=== PATIENT | female | born 1975 | race Two or more races ===

== ENCOUNTER 2019-08-23 19:04 | Emergency (ER) | payer SELFPAY ==
[~2019-08-23] VITALS: Ht 157.5 cm; Wt 108.9 kg
[2019-08-23 19:51] LABS: Urine Bacteria FEW /hpf (None Seen); Urine Blood Negative /uL (Negative); Urine Mucus FEW (None Seen); Urine Specific Gravity 1.017 (1.001-1.035); Urine WBC 4 /hpf (0 - 5)
[2019-08-23 19:55] LABS: Basophils # (auto) 0.1 10 ^3/uL (0-0.2); Basophils % (auto) 0.5 % (0.0-2.0); Monocytes # (auto) 0.6 10 ^3/uL (0-1.3); Neutrophils % (auto) 74.3 % (37.0-80.0)
[2019-08-23 19:56] LABS: Eosinophils # (auto) 0.4 10 ^3/uL (0-0.8); Hemoglobin 12.8 g/dL (12.2-16.2); Lymphocytes % (auto) 16.9 % (10.0-50.0); Mean Corpuscular Hemoglobin 26.2 pg (28.0-32.0); Mean Corpuscular Hgb Conc. 32.8 g/dL (32.0-36.0); Mean Corpuscular Volume 79.7 fL (80.0-100.0); Monocytes % (auto) 5.3 % (0.0-12.0); Neutrophils # (auto) 8.6 10 ^3/uL (1.6-8.6); Platelet Count (auto) 287 10^3/uL (140-450); Red Blood Cells 4.89 10^6/uL (4.0-5.20); Red Cell Distribution Width 17.8 % (11.8-14.3); White Blood Cell 11.6 10^3/uL (4.4-10.8)
[2019-08-23 20:11] LABS: Albumin 3.4 g/dL (3.4-5.0); BUN/Creatinine Ratio 19.7; Calcium 8.6 mg/dL (8.5-10.1)
[2019-08-23 20:14] LABS: Bilirubin, Total 0.6 mg/dL (0.2-1.0)
[2019-08-23 22:30] VITALS: BP 138/86
[2019-08-23] MEDS ORDERED: DONNATAL 5ml ORAL Elix (BELLADONNA ALK-PHENOBARB) PO ONE (22:30)
[2019-08-23] MEDS ORDERED: LIDOCAINE VISCOUS 2% 15ML UD PO ONE (22:30)
[2019-08-23] MEDS ORDERED: ALUM & MAG HYDROX-SIMETH LIQ(MAALOX) 30 ML PO ONE (22:30)
== END 2019-08-23 22:58 | disposition home or self-care (01) ==
LOC: ER 19:04
DX: K29.70 Gastritis, unspecified, without bleeding (principal); N39.0 Urinary tract infection, site not specified; Z98.51 Tubal ligation status; Z98.890 Other specified postprocedural states; Z98.84 Bariatric surgery status
CPT/HCPCS: 36415; 74176; 80053; 81001; 81025; 83690; 84484; 85025

== ENCOUNTER 2022-02-08 07:58 | Inpatient (IN) | payer MEDICAID, OTHER ==
[~2022-02-08] VITALS: Ht 157.5 cm; Wt 98.8 kg
[2022-02-08 08:50] LABS: Eosinophils # (auto) 0.3 10 ^3/uL (0-0.8); Hemoglobin 12.9 g/dL (12.2-16.2); Monocytes # (auto) 0.6 10 ^3/uL (0-1.3)
[2022-02-08 08:52] LABS: Basophils # (auto) 0.1 10 ^3/uL (0-0.2); Basophils % (auto) 0.7 % (0.0-2.0); Eosinophils % (auto) 2.6 % (0.0-7.0); Hematocrit 40.6 % (36.0-46.0); Lymphocytes # (auto) 2.4 10 ^3/uL (0.4-5.4); Lymphocytes % (auto) 20.2 % (10.0-50.0); Mean Corpuscular Hemoglobin 25.2 pg (28.0-32.0); Mean Corpuscular Hgb Conc. 31.9 g/dL (32.0-36.0); Monocytes % (auto) 5.4 % (0.0-12.0); Neutrophils # (auto) 8.5 10 ^3/uL (1.6-8.6); Neutrophils % (auto) 71.1 % (37.0-80.0); Nucleated Red Blood Cells % 0.1 %; Red Blood Cells 5.13 10^6/uL (4.0-5.20); Red Cell Distribution Width 16.6 % (11.8-14.3)
[2022-02-08] MEDS ORDERED: SODIUM CHLORIDE 0.9% 500 ML IV ONE (09:00)
[2022-02-08 09:06] LABS: Albumin 3.5 g/dL (3.4-5.0); Potassium 4.5 mmol/L (3.5-5.1)
[2022-02-08 09:09] LABS: BUN/Creatinine Ratio 36.2; Bilirubin, Total 0.5 mg/dL (0.2-1.0); Total Protein 7.4 g/dL (6.4-8.2)
[2022-02-08] MEDS ORDERED: KETOROLAC TROMETH 30 MG/ML 1ML VIAL IV ONE (10:00)
[2022-02-08] MEDS ORDERED: METOCLOPRAMIDE HCL 5MG/ml INJ 2ml VIAL IV ONE (10:00)
[2022-02-08] MEDS ORDERED: IOHEXOL 300 MG/ML 100ML BOTTLE IJ ONE ×2 (11:20→12:33)
[2022-02-08] MEDS ORDERED: metroNIDAZOLE 500MG/100ML 100 ML IV ONE (15:15)
[2022-02-08] MEDS ORDERED: cefTRIAXone 1GM/50ML D5W 50 ML IV ONE (15:15)
[2022-02-08 15:20] VITALS: BP 128/78
[2022-02-08 16:24] LABS: INR 0.97 (0.9-1.15); Partial Thromboplastin Time 25.4 sec (24.6-33.4)
[2022-02-08] MEDS ORDERED: D5W/SOD CHL 0.45%/KCL 20MEQ 1,000 ML IV SCH (16:30)
[2022-02-08 19:00] LABS: Urine Bacteria NONE SEEN /hpf (None Seen); Urine Blood 3+ /uL (Negative); Urine Mucus FEW (None Seen); Urine Specific Gravity 1.032 (1.001-1.035); Urine WBC 283 /hpf (0 - 5); Urine WBC Clumps PRESENT /hpf (None Seen)
[2022-02-08] MEDS ORDERED: NITROGLYCERIN 0.4 MG SL TAB SL PRN (19:45)
[2022-02-08] MEDS ORDERED: ONDANSETRON HCL 4 MG/2 ML VIAL IV PRN (19:45)
[2022-02-08] MEDS ORDERED: MORPHINE SULFATE INJ 2 MG/ml SYRG IV PRN ×2 (19:45)
[2022-02-08] MEDS ORDERED: DOCUSATE SOD 100 MG CAP PO PRN (19:45)
[2022-02-08] MEDS ORDERED: SODIUM CHLORIDE 0.9% 1,000 ML IV SCH (19:45)
[2022-02-08] MEDS ORDERED: PANTOPRAZOLE 40 MG/10 ML VIAL INJ IV SCH (22:00)
[2022-02-09] MEDS ORDERED: PIPERACILLIN-TAZOB 3.375GM 100 ML IV SCH
== END 2022-02-09 00:57 | disposition left against medical advice (07) | DRG 241 ==
LOC: ER 07:58 → TELE 19:37 → TELE-EAST 22:33
PROVIDERS: ADMIT Nurse Practitioner Family; ATTEND Nurse Practitioner Family
DX: K25.5 Chronic or unspecified gastric ulcer with perforation (principal); K85.90 Acute pancreatitis without necrosis or infection, unspecified; K29.70 Gastritis, unspecified, without bleeding; D21.9 Benign neoplasm of connective and other soft tissue, unspecified; D49.0 Neoplasm of unspecified behavior of digestive system; D72.829 Elevated white blood cell count, unspecified; Z53.29 Procedure and treatment not carried out because of patient's decision for other reasons; K57.30 Diverticulosis of large intestine without perforation or abscess without bleeding; Z20.822 Contact with and (suspected) exposure to COVID-19; Z98.84 Bariatric surgery status
CPT/HCPCS: 36415; 71046; 74177; 80053; 81001; 83690; 84484; 85025; 85610; 85730; 86677; 86850; 86900; 86901; 87426; 93005; 96361; 96374; 96375; G0378; J1885